=== PATIENT | male | born 1975 | race Caucasian/White ===

== ENCOUNTER 2020-02-29 17:36 | Emergency (ER) | payer OTHER, SELFPAY ==
--- NOTE | 2020-02-29 17:38 | PC.NURSE ---
SPOKE WITH PT IN ADMITTING AREA AND IS INQUIRING INTO DIAGNOSIS OF KIDNEY STONES. INFORMED PT WE WILL BE ABLE TO CHECK HIS URINE AND MAY NEED TO SEND HIM FOR AN ULTRASOUND TO RULE OUT THE KIDNEY STONES. PT STOOD UP AND SAID HE NEEDED TO GO TO THE HOSPITAL AND BE CHECKED HE HAS HAD STONES IN THE PAST. LEFT WITH NO OBVIOUS DISTRESS AND VS NOT EVALUATED AT THIS TIME.
== END 2020-02-29 17:38 | disposition left against medical advice (07) ==
PROVIDERS: Emergency Provider Nurse Practitioner Family
DX: Z53.21 Procedure and treatment not carried out due to patient leaving prior to being seen by health care provider (principal)
CPT/HCPCS: 99199